=== PATIENT | male | born 1935 | race Caucasian/White ===

== ENCOUNTER 2022-07-29 03:58 | Day surgery (SDC) | payer OTHER, MEDICARE ==
[2022-07-26 09:15] VITALS: BMI 25.0
[2022-07-29] MEDS ORDERED: PROPOFOL 20 ML ONE ×2 (12:36→12:54)
[2022-07-29] MEDS ORDERED: MIDAZOLAM HCL 2 MG/2 ML SINGLE DOSE VIAL ONE (12:36)
[2022-07-29] MEDS ORDERED: ROCURONIUM BROMIDE 50 MG/5 ML SYRINGE ONE (12:47)
[2022-07-29] MEDS ORDERED: DEXAMETHASONE SOD PHOSPHATE 4 MG/1 ML VIAL ONE (13:30)
[2022-07-29] MEDS ORDERED: ONDANSETRON 4 MG/2 ML VIAL ONE (13:30)
[2022-07-29] MEDS ORDERED: ONDANSETRON 4 MG/2 ML VIAL IVPUSH PRN (13:45)
[2022-07-29] MEDS ORDERED: LACTATED RINGERS SOLUTION 1,000 ML IV SCH (13:45)
[2022-07-29 17:43] VITALS: BP 141/58; PULSE 80; RESP 16; TEMP 98.1
== END 2022-07-29 17:51 | disposition home or self-care (01) ==
LOC: JASU-SURG 03:58
PROVIDERS: ATTEND Urology
PROC: 0T778DZ Dilation of Left Ureter with Intraluminal Device, Via Natural or Artificial Opening Endoscopic (ICD-10-PCS; principal; 2022-07-29 11:00)
DX: C49.5 Malignant neoplasm of connective and soft tissue of pelvis (principal); N13.30 Unspecified hydronephrosis; N17.9 Acute kidney failure, unspecified
CPT/HCPCS: 76000-TC-FY; 94760; C1758; C2617

== ENCOUNTER 2023-03-10 05:22 | Day surgery (SDC) | payer OTHER, MEDICARE ==
[2023-03-06 12:10] VITALS: BMI 25.0
[2023-03-10] MEDS ORDERED: LIDOCAINE HCL/PF 2% SDV 5ML VIAL ONE (15:12)
[2023-03-10] MEDS ORDERED: FENTANYL CITRATE/PF 50 MCG/ML VIAL ONE (15:12)
[2023-03-10] MEDS ORDERED: MIDAZOLAM HCL 2 MG/2 ML SINGLE DOSE VIAL ONE (15:12)
[2023-03-10] MEDS ORDERED: PROPOFOL 20 ML ONE (15:12)
[2023-03-10] MEDS ORDERED: ceFAZolin SODIUM 1 GM VIAL ONE (15:28)
[2023-03-10] MEDS ORDERED: DEXAMETHASONE SOD PHOSPHATE 4 MG/1 ML VIAL ONE (15:28)
[2023-03-10] MEDS ORDERED: ONDANSETRON 4 MG/2 ML VIAL ONE (16:16)
[2023-03-10] MEDS ORDERED: KETOROLAC TROMETHAMINE 30 MG/1 ML VIAL ONE (16:16)
[2023-03-10] MEDS ORDERED: oxyCODONE HCL 5 MG TABLET PO PRN ×2 (16:30)
[2023-03-10] MEDS ORDERED: ONDANSETRON 4 MG/2 ML VIAL IVPUSH PRN (16:30)
[2023-03-10] MEDS ORDERED: PROMETHAZINE HCL 25 MG/1 ML VIAL IVPB PRN (16:30)
[2023-03-10] MEDS ORDERED: LACTATED RINGERS SOLUTION 1,000 ML IV SCH (16:30)
[2023-03-10] MEDS ORDERED: ACETAMINOPHEN 1000 MG/100 ML BAG IVPB ONE (16:31)
[2023-03-10] MEDS ORDERED: ACETAMINOPHEN INJECTION 100 ML IVPB ONE (16:42)
[2023-03-10 17:53] VITALS: BP 139/69; PULSE 65; RESP 18; TEMP 97.6
== END 2023-03-10 19:30 | disposition home or self-care (01) ==
LOC: JASU-SURG 05:22
PROVIDERS: ATTEND Urology
PROC: BT1FYZZ Fluoroscopy of Left Kidney, Ureter and Bladder using Other Contrast (ICD-10-PCS; 2023-03-10)
PROC: 0T778ZZ Dilation of Left Ureter, Via Natural or Artificial Opening Endoscopic (ICD-10-PCS; principal; 2023-03-10 13:30)
PROC: 0T778DZ Dilation of Left Ureter with Intraluminal Device, Via Natural or Artificial Opening Endoscopic (ICD-10-PCS; 2023-03-10 13:30)
DX: N13.1 Hydronephrosis with ureteral stricture, not elsewhere classified (principal); C76.3 Malignant neoplasm of pelvis
CPT/HCPCS: 76000-TC-FY; 94760; C2617

== ENCOUNTER 2023-09-22 23:56 | Inpatient (IN) | payer OTHER, MEDICARE ==
[2023-09-23] MEDS ORDERED: LIDOCAINE HCL 2% JELLY 10 ML CARTRIDGE UR ONE (00:45)
[2023-09-23] MEDS ORDERED: LIDOCAINE HCL 2% JELLY 11 ML TP ONE (00:45)
[2023-09-23] MEDS: LIDOCAINE HCL 2% JELLY 10 ML CARTRIDGE UR STA (01:04)
[2023-09-23] MEDS: LIDOCAINE HCL 2% JELLY 10 ML CARTRIDGE UR ONE (01:06)
[2023-09-23 01:43] LABS: BASO % 0.5 % (0-2.0); EOS % 0.1 % (0-4.5); HEMATOCRIT 39.8 % (35.4-49); LYMPH % 3.7 % (8-40); MCH 26.9 pg (25.7-33.7); MCHC 32.6 g/dl (32.0-35.9); MEAN CELL VOLUME 82.4 fl (80-96); MEAN PLT VOLUME 8.2 fl (7.5-11.1); MONO % 7.2 % (3.8-10.2); NEUT % 88.5 % (42.8-82.8); PLATELET COUNT 202 10^3/uL (134-434); RBC 4.83 M/mm3 (4.00-5.60); RDW 16.7 % (11.9-15.9); WHITE BLOOD COUNT 14.8 K/mm3 (4.0-10.0)
[2023-09-23 01:46] LABS: EPI CELLS 0 /uL (0-25.1); HYALINE CASTS 0 /uL (0-3.1); PH,URINE 5.5 (5.0-8.0); URINE APPEARANCE CLOUDY; URINE BACTERIA 4 /uL (0-1359); URINE BILIRUBIN NEGATIVE (NEGATIVE); URINE COLOR YELLOW; URINE GLUCOSE (UA) NEGATIVE (NEGATIVE); URINE KETONE NEGATIVE (NEGATIVE); URINE LEUK ESTERASE 3+ (NEGATIVE); URINE NITRITE NEGATIVE (NEGATIVE); URINE PROTEIN 2+ (NEGATIVE); URINE UROBILINOGEN 0.2 mg/dL (0.2-1.0); URINE WBC 1321 /uL (0-25.8)
[2023-09-23 02:06] LABS: POTASSIUM 4.2 mmol/L (3.5-5.1)
[2023-09-23 02:09] LABS: ALBUMIN 3.6 g/dl (3.4-5.0); BLOOD UREA NITROGEN 33.3 mg/dL (7-18)
[2023-09-23 02:12] LABS: CREATININE 1.9 mg/dL (0.55-1.3)
[2023-09-23 02:14] LABS: BILIRUBIN,TOTAL 0.6 mg/dL (0.2-1); TOT PROT 7.3 g/dl (6.4-8.2)
[2023-09-23] MEDS ORDERED: CEFTRIAXONE 1 GM/50 ML BAG ONE (03:02)
[2023-09-23] MEDS ORDERED: ACETAMINOPHEN 325 MG TABLET (FP) PO PRN ×2 (03:20→14:13)
[2023-09-23] MEDS: CEFTRIAXONE 1,000 MG in DEXTROSE 5%-WATER - 50 ML IVPB ONE (03:51)
[2023-09-23 04:16] LABS: URINE RBC 661 /uL (0-23.9); YEAST NONE SEEN (NEGATIVE)
[2023-09-23] MEDS: LACTATED RINGERS SOLUTION 1,000 ML IV SCH (04:26)
[2023-09-23 05:49] VITALS: BMI 24.6
[2023-09-23 08:41] LABS: INR 1.09 (0.83-1.09); PROTHROMBIN TIME (PATIENT) 12.3 SEC (9.7-13.0)
[2023-09-23 08:44] LABS: ACTIVATED PTT 28.7 SECONDS (25.2-36.5)
[2023-09-23 08:51] LABS: POTASSIUM 4.1 mmol/L (3.5-5.1)
[2023-09-23 08:59] LABS: BASO % 0.1 % (0-2.0); EOS % 0.2 % (0-4.5); HEMATOCRIT 36.5 % (35.4-49); HEMOGLOBIN 11.8 GM/dL (11.7-16.9); MCH 26.5 pg (25.7-33.7); MCHC 32.2 g/dl (32.0-35.9); MEAN CELL VOLUME 82.2 fl (80-96); MEAN PLT VOLUME 8.7 fl (7.5-11.1); MONO % 9.9 % (3.8-10.2); NEUT % 83.8 % (42.8-82.8); PLATELET COUNT 188 10^3/uL (134-434); RBC 4.44 M/mm3 (4.00-5.60); RDW 16.4 % (11.9-15.9)
[2023-09-23 09:03] LABS: ALBUMIN 3.1 g/dl (3.4-5.0); CALCIUM 8.7 mg/dL (8.5-10.1); MAGNESIUM 2.2 mg/dL (1.8-2.4)
[2023-09-23 09:06] LABS: CREATININE 1.6 mg/dL (0.55-1.3); PHOSPHOROUS 3.6 mg/dL (2.5-4.9)
[2023-09-23 09:08] LABS: BILIRUBIN,TOTAL 0.5 mg/dL (0.2-1); TOT PROT 6.3 g/dl (6.4-8.2)
[2023-09-23] MEDS: MONTELUKAST NA 10 MG TABLET PO SCH (11:02)
[2023-09-23] MEDS: CEFTRIAXONE 1 GM in DEXTROSE 5%-WATER - 50 ML IVPB SCH (11:02)
[2023-09-23] MEDS: PIPERACILLIN/TAZOB 3.375 GM 3.375 GM in DEXTROSE 5%-WATER - 50 ML IVPB SCH (13:24)
[2023-09-23] MEDS: amLODIPine BESYLATE 10 MG TABLET (FP) PO SCH (14:30)
[2023-09-23] MEDS: ATORVASTATIN CA 10 MG TABLET (FP) PO SCH (22:08)
[2023-09-24 08:29] LABS: BASO % 0.4 % (0-2.0); EOS % 2.4 % (0-4.5); HEMATOCRIT 33.5 % (35.4-49); HEMOGLOBIN 11.2 GM/dL (11.7-16.9); LYMPH % 10.8 % (8-40); MCH 27.4 pg (25.7-33.7); MCHC 33.5 g/dl (32.0-35.9); MEAN CELL VOLUME 81.6 fl (80-96); MEAN PLT VOLUME 8.3 fl (7.5-11.1); MONO % 12.6 % (3.8-10.2); NEUT % 73.8 % (42.8-82.8); PLATELET COUNT 165 10^3/uL (134-434); RBC 4.11 M/mm3 (4.00-5.60); RDW 16.8 % (11.9-15.9); WHITE BLOOD COUNT 11.2 K/mm3 (4.0-10.0)
[2023-09-24 08:40] LABS: POTASSIUM 3.8 mmol/L (3.5-5.1)
[2023-09-24 08:48] LABS: CALCIUM 8.6 mg/dL (8.5-10.1)
[2023-09-24 08:49] LABS: BLOOD UREA NITROGEN 20.6 mg/dL (7-18)
[2023-09-24 08:52] LABS: CREATININE 1.5 mg/dL (0.55-1.3)
[2023-09-25 07:46] LABS: BASO % 0.5 % (0-2.0); HEMATOCRIT 33.8 % (35.4-49); HEMOGLOBIN 11.1 GM/dL (11.7-16.9); LYMPH % 11.7 % (8-40); MCH 27.2 pg (25.7-33.7); MCHC 32.8 g/dl (32.0-35.9); MEAN CELL VOLUME 82.8 fl (80-96); MEAN PLT VOLUME 8.3 fl (7.5-11.1); MONO % 13.4 % (3.8-10.2); NEUT % 70.4 % (42.8-82.8); PLATELET COUNT 172 10^3/uL (134-434); RBC 4.08 M/mm3 (4.00-5.60); RDW 16.3 % (11.9-15.9); WHITE BLOOD COUNT 10.6 K/mm3 (4.0-10.0)
[2023-09-25 08:04] LABS: POTASSIUM 3.6 mmol/L (3.5-5.1)
[2023-09-25 08:08] LABS: CALCIUM 8.3 mg/dL (8.5-10.1)
[2023-09-25 08:12] LABS: CREATININE 1.5 mg/dL (0.55-1.3)
[2023-09-25] MEDS ORDERED: LACTOBACILLUS ACIDOPHILUS 1 TABLET PO SCH (10:00)
[2023-09-25] MEDS: LACTOBACILLUS ACIDOPHILUS 1 TABLET PO SCH (10:18)
[2023-09-26 09:28] LABS: BASO % 0.4 % (0-2.0); HEMATOCRIT 35.6 % (35.4-49); HEMOGLOBIN 11.8 GM/dL (11.7-16.9); LYMPH % 11.1 % (8-40); MCH 27.4 pg (25.7-33.7); MCHC 33.2 g/dl (32.0-35.9); MEAN CELL VOLUME 82.5 fl (80-96); MEAN PLT VOLUME 8.4 fl (7.5-11.1); MONO % 7.7 % (3.8-10.2); NEUT % 75.8 % (42.8-82.8); PLATELET COUNT 215 10^3/uL (134-434); RBC 4.32 M/mm3 (4.00-5.60); RDW 16.8 % (11.9-15.9)
[2023-09-26 09:50] LABS: POTASSIUM 3.5 mmol/L (3.5-5.1)
[2023-09-26 09:59] LABS: CALCIUM 8.7 mg/dL (8.5-10.1)
[2023-09-26 10:03] LABS: CREATININE 1.5 mg/dL (0.55-1.3)
[2023-09-27 09:06] LABS: BASO % 0.4 % (0-2.0); EOS % 5.3 % (0-4.5); HEMATOCRIT 33.8 % (35.4-49); LYMPH % 13.7 % (8-40); MCH 26.8 pg (25.7-33.7); MCHC 32.4 g/dl (32.0-35.9); MEAN CELL VOLUME 82.7 fl (80-96); MEAN PLT VOLUME 8.2 fl (7.5-11.1); NEUT % 69.6 % (42.8-82.8); PLATELET COUNT 214 10^3/uL (134-434); RBC 4.09 M/mm3 (4.00-5.60); RDW 16.3 % (11.9-15.9); WHITE BLOOD COUNT 8.9 K/mm3 (4.0-10.0)
[2023-09-27 09:25] LABS: POTASSIUM 3.7 mmol/L (3.5-5.1)
[2023-09-27 09:26] LABS: CALCIUM 8.5 mg/dL (8.5-10.1)
[2023-09-27 09:27] LABS: BLOOD UREA NITROGEN 21.5 mg/dL (7-18)
[2023-09-27 09:30] LABS: CREATININE 1.5 mg/dL (0.55-1.3)
[2023-09-28 07:24] LABS: POTASSIUM 3.6 mmol/L (3.5-5.1)
[2023-09-28 07:27] LABS: CALCIUM 8.5 mg/dL (8.5-10.1)
[2023-09-28 07:28] LABS: BLOOD UREA NITROGEN 20.3 mg/dL (7-18)
[2023-09-28 07:31] LABS: CREATININE 1.4 mg/dL (0.55-1.3)
[2023-09-28 07:35] LABS: BASO % 0.6 % (0-2.0); HEMATOCRIT 34.2 % (35.4-49); HEMOGLOBIN 11.1 GM/dL (11.7-16.9); LYMPH % 14.4 % (8-40); MCH 26.7 pg (25.7-33.7); MCHC 32.4 g/dl (32.0-35.9); MEAN CELL VOLUME 82.6 fl (80-96); MEAN PLT VOLUME 8.3 fl (7.5-11.1); MONO % 10.9 % (3.8-10.2); NEUT % 69.1 % (42.8-82.8); PLATELET COUNT 227 10^3/uL (134-434); RBC 4.14 M/mm3 (4.00-5.60); RDW 16.2 % (11.9-15.9); WHITE BLOOD COUNT 8.4 K/mm3 (4.0-10.0)
[2023-09-29] MEDS: AMOX TR/POT CLAV 875MG/125MG TABLETS (FP) PO SCH (09:01)
[2023-09-29 09:18] LABS: HEMATOCRIT 35.6 % (35.4-49); HEMOGLOBIN 11.7 GM/dL (11.7-16.9); MCHC 32.8 g/dl (32.0-35.9); MEAN CELL VOLUME 82.3 fl (80-96); MEAN PLT VOLUME 8.1 fl (7.5-11.1); PLATELET COUNT 250 10^3/uL (134-434); RBC 4.33 M/mm3 (4.00-5.60); RDW 16.4 % (11.9-15.9); WHITE BLOOD COUNT 9.5 K/mm3 (4.0-10.0)
[2023-09-29 09:31] LABS: POTASSIUM 3.9 mmol/L (3.5-5.1)
[2023-09-29 09:37] LABS: CREATININE 1.6 mg/dL (0.55-1.3)
[2023-09-29 23:10] VITALS: RESP 18
[2023-09-30 09:26] VITALS: BP 116/53; PULSE 74; TEMP 97.7
== END 2023-09-30 13:16 | DRG 699 ==
LOC: JER 23:56 → JERBED 09-23 01:04 → J7W 09-23 04:56 → OBSVTOIN 09-23 13:36 → J7W 09-23 21:38
PROVIDERS: ADMIT Internal Medicine; ATTEND Internal Medicine
DX: N99.89 Other postprocedural complications and disorders of genitourinary system (principal); N13.30 Unspecified hydronephrosis; R33.9 Retention of urine, unspecified; N48.89 Other specified disorders of penis; N49.2 Inflammatory disorders of scrotum; I12.9 Hypertensive chronic kidney disease with stage 1 through stage 4 chronic kidney disease, or unspecified chronic kidney disease; N18.9 Chronic kidney disease, unspecified; R19.7 Diarrhea, unspecified; E78.5 Hyperlipidemia, unspecified; K66.8 Other specified disorders of peritoneum; Y83.9 Surgical procedure, unspecified as the cause of abnormal reaction of the patient, or of later complication, without mention of misadventure at the time of the procedure
CPT/HCPCS: 36415; 71045-TC-FY; 74176-TC; 76000-TC-FY; 76705-TC; 76870-TC; 80048; 80053; 81003; 83735; 84100; 85025; 85027; 85610; 85730; 87086; 87635; 93005; 93010; 94760; 97116-GP; 97161-GP; 99285-25; C2617; G0378

== ENCOUNTER 2024-07-08 02:04 | Emergency (ER) | payer OTHER, MEDICARE ==
[2024-07-08 02:10] VITALS: BMI 24.2
[2024-07-08] MEDS ORDERED: ACETAMINOPHEN INJECTION 100 ML ONE (02:37)
[2024-07-08] MEDS ORDERED: ASPIRIN 81 MG CHEWABLE TABLETS ONE (02:37)
[2024-07-08] MEDS: ACETAMINOPHEN 1000 MG/100 ML BAG IVPB ONE (02:50)
[2024-07-08] MEDS: ASPIRIN 81 MG CHEWABLE TABLETS PO ONE (02:50)
[2024-07-08 03:32] LABS: BASO % 0.3 % (0-2.0); EOS % 0.2 % (0-4.5); HEMATOCRIT 26.1 % (35.4-49); HEMOGLOBIN 8.3 GM/dL (11.7-16.9); LYMPH % 8.6 % (8-40); MCH 25.7 pg (25.7-33.7); MCHC 31.7 g/dl (32.0-35.9); MEAN CELL VOLUME 81.1 fl (80-96); MEAN PLT VOLUME 7.5 fl (7.5-11.1); MONO % 10.9 % (3.8-10.2); PLATELET COUNT 271 10^3/uL (134-434); RBC 3.22 M/mm3 (4.00-5.60); RDW 19.4 % (11.9-15.9); WHITE BLOOD COUNT 7.7 K/mm3 (4.0-10.0)
[2024-07-08 03:59] LABS: ALBUMIN 2.6 g/dl (3.4-5.0); CALCIUM 8.5 mg/dL (8.5-10.1)
[2024-07-08 04:00] LABS: BLOOD UREA NITROGEN 27.9 mg/dL (7-18)
[2024-07-08 04:03] LABS: CREATININE 1.3 mg/dL (0.55-1.3)
[2024-07-08 04:04] LABS: BILIRUBIN,TOTAL 0.3 mg/dL (0.2-1); TOT PROT 6.2 g/dl (6.4-8.2)
[2024-07-08] MEDS ORDERED: CEFPODOXIME PROXETIL 100 MG TABLET PO ONE ×2 (04:50→04:59)
[2024-07-08] MEDS: CEFPODOXIME PROXETIL 100 MG TABLET PO ONE (05:44)
[2024-07-08 09:30] VITALS: BP 152/63; PULSE 67; RESP 18; TEMP 98
== END 2024-07-08 09:25 ==
LOC: JER 02:04
PROC: 3E033NZ Introduction of Analgesics, Hypnotics, Sedatives into Peripheral Vein, Percutaneous Approach (ICD-10-PCS; principal; 2024-07-08)
DX: R07.89 Other chest pain (principal); N39.0 Urinary tract infection, site not specified; R19.7 Diarrhea, unspecified; Z20.822 Contact with and (suspected) exposure to COVID-19
CPT/HCPCS: 0241U-QW; 36415; 71045-TC-FY; 80053; 83735; 84484; 85025; 87086; 87186; 93005; 93010; 99285-25; J0131